=== PATIENT | male | born 1985 | race Caucasian/White ===

== ENCOUNTER 2020-10-05 23:41 | Emergency (ER) | payer MEDICAID, SELFPAY ==
[2020-10-05 23:41] VITALS: BP 142/73; PULSE 103; RESP 20; TEMP 36.8; O2SAT 100
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
[2020-10-06 00:26] LABS: Anion Gap 8 mmol/L (8-16); Blood Urea Nitrogen 18 mg/dL (7-18); Calcium 9.4 mg/dL (8.5-10.1); Carbon Dioxide 26 mmol/L (21-32); Chloride 104 mmol/L (98-108); Estimated CRCL calculation 106 ml/min; Estimated Glomerular Filt Rate > 60; Glucose 123 mg/dL (70-99); Osmolality Calculated 288 mOsm/kg (285-295); Potassium 3.8 mmol/L (3.5-5.1); Sodium 138 mmol/L (136-145)
--- NOTE | 2020-10-06 00:28 | PC.NURSE ---
0028-Patient sleeping, family at bedside.
[2020-10-06 00:32] LABS: Amphetamine Screen Urine Negative (Negative); Barbiturate Screen Urine Negative (Negative); Benzodiazepines Screen Urine Negative (Negative); Cannabinoid Screen Urine Positive (Negative); Cocaine Screen Urine Negative (Negative); Methadone Screen Urine Negative (Negative); Opiate Screen Urine Negative (Negative); Phencyclidine Screen Urine Negative (Negative)
[2020-10-06 00:35] LABS: Ethanol < 3 mg/dL (0-6)
[2020-10-06 00:43] VITALS: BP 110/65; PULSE 79; RESP 20; TEMP 37.1; O2SAT 99
--- NOTE | 2020-10-06 00:53 | PC.NURSE ---
PT AMBULATED TO FRONT DOOR WITH RN, NO DIFFICULTY WITH AMBULATION. GAIT SLOW AND STEADY. CONTINUED TO PERSONAL CAR DRIVEN BY MOTHER.
== END 2020-10-06 00:52 | disposition home or self-care (01) ==
PROVIDERS: Emergency Provider Emergency Medicine; PCP Nurse Practitioner
DX: F12.122 Cannabis abuse with intoxication with perceptual disturbance (principal)
CPT/HCPCS: 36415; 80048; 80307; 99282; 99283

== ENCOUNTER 2021-03-19 08:37 | Outpatient (CLI) | payer OTHER, SELFPAY ==
[2021-03-19 10:09] LABS: HIV 1 P24 AG Negative (Negative); HIV 1/2 AB Negative (Negative)
[2021-03-24 20:52] LABS: RPR Screen Non-Reactive (Non-Reactive)
[2021-03-25 22:01] LABS: Hepatitis A Antibody IgM Nonreactive; Hepatitis B Core Antibody Nonreactive (Nonreactive); Hepatitis B Surface Antigen Nonreactive (Nonreactive); Hepatitis C Signal to Cutoff 0.03 ratio (<1.00); Hepatitis C Virus Antibody Nonreactive (Nonreactive)
== END 2021-03-19 08:38 | disposition home or self-care (01) ==
LOC: CHSLAB 08:43
PROVIDERS: PCP Family Medicine; Visit Provider Family Medicine
DX: Z72.51 High risk heterosexual behavior (principal)
CPT/HCPCS: 36415; 80074; 86592; 86696; 86703

== ENCOUNTER 2021-06-11 15:59 | Emergency (ER) | payer OTHER, SELFPAY ==
[2021-06-11 16:00] VITALS: BP 120/78; PULSE 77; RESP 16; TEMP 36.3; O2SAT 96
--- NOTE | 2021-06-11 16:08 | ECG_ITS ---
Measurements Intervals [place] Rate: 69 P: 21 WV: 156 QRS: 29 QRSD: 85 T: 44 QT: 375 QTc: 402 Interpretive Statements SINUS RHYTHM NORMAL ECG Electronically Signed On 06-13-2021 6:04:29 CDT by Christian Gomes D.O.
--- NOTE | 2021-06-11 16:24 | PC.NURSE ---
donte Garcia rn contacted to request bedside safety belt installer for pt with suicidal and homicidal ideations
[2021-06-11 16:44] LABS: Basophils Absolute Auto 0.03 K/mm3 (0.00-0.10); Basophils Percent Auto 0.3 % (0.0-1.0); Eosinophils Absolute Auto 0.19 K/mm3 (0.02-0.50); Eosinophils Percent Auto 2.2 % (1.0-6.0); Hematocrit 47.5 % (40.0-54.0); Hemoglobin 15.4 g/dL (14.0-18.0); Immature Granulocyte Absolute 0.03 K/mm3 (0.00-0.00); Immature Granulocyte Percent A 0.3 % (0.0-0.0); Lymphocytes Absolute Auto 2.59 K/mm3 (1.10-4.50); Lymphocytes Percent Auto 29.8 % (18.0-42.0); Mean Corpuscular HGB Conc 32.4 g/dL (32.0-36.0); Mean Corpuscular Hemoglobin 29.6 pg (27.0-31.0); Mean Corpuscular Volume 91.2 fL (78.0-102.0); Monocytes Absolute Auto 0.54 K/mm3 (0.10-0.90); Monocytes Percent Auto 6.2 % (2.0-11.0); Neutrophils Absolute Auto 5.3 K/mm3 (1.7-7.2); Neutrophils Percent Auto 61.2 % (50.0-70.0); Platelet Count Result 303 K/mm3 (150-420); Red Blood Count 5.21 M/mm3 (4.70-6.10); Red Cell Distribution Width 14.2 % (11.6-14.4); White Blood Count 8.7 K/mm3 (4.8-10.8)
[2021-06-11 16:49] LABS: Add Urine Microscopic? NO; Appearance Urine Clear (Clear); Bilirubin Urine Negative (Negative); Blood Urine Negative (Negative); Color Urine Light Yellow (Yellow); Glucose Urine UA Negative (Negative); Ketones Urine Negative (Negative); Leukocyte Esterase Ur Negative (Negative); Nitrate Urine Negative (Negative); Protein Urine Negative (Negative); Specific Grav Ur >= 1.030 (1.010-1.020); Urobilinogen Urine 0.2 mg/dL (0.2-1.0)
[2021-06-11 17:00] LABS: Alanine Aminotransferase 26 U/L (16-63); Albumin Level 3.6 g/dL (3.4-5.0); Alkaline Phosphatase 115 U/L (46-116); Anion Gap 11 mmol/L (8-16); Aspartate Amino Transferase 15 U/L (15-37); Bilirubin,Total 0.4 mg/dL (0.00-1.00); Blood Urea Nitrogen 12 mg/dL (7-18); Calcium 8.8 mg/dL (8.5-10.1); Carbon Dioxide 24 mmol/L (21-32); Chloride 103 mmol/L (98-108); Estimated CRCL calculation 91 ml/min; Estimated Glomerular Filt Rate > 60; Glucose 121 mg/dL (70-99); Osmolality Calculated 286 mOsm/kg (285-295); Potassium 3.8 mmol/L (3.5-5.1); Sodium 138 mmol/L (136-145); Total Protein 8.3 g/dL (6.4-8.2)
[2021-06-11 17:01] LABS: Amphetamine Screen Urine Negative (Negative); Barbiturate Screen Urine Negative (Negative); Benzodiazepines Screen Urine Negative (Negative); Cannabinoid Screen Urine Negative (Negative); Cocaine Screen Urine Negative (Negative); Methadone Screen Urine Negative (Negative); Opiate Screen Urine Negative (Negative); Phencyclidine Screen Urine Negative (Negative)
[2021-06-11 17:03] LABS: SARS-CoV-2 Ag Negative (Negative)
[2021-06-11 17:04] LABS: Ethanol < 3 mg/dL (0-6)
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
--- NOTE | 2021-06-11 17:51 | PC.NURSE ---
second call out for [facility] rep at [phone]. awaiting call back
--- NOTE | 2021-06-11 20:04 | PC.NURSE ---
TD MORGAN STATES PATIENT CAN GO HOME WITH AN APPT TO FOLLOW UP WITH PSYCHIATRIST. TD TABARES REP. SIGNS SAFETY CONTRACT WITH PATIENT.
[2021-06-11 20:05] VITALS: RESP 14; O2SAT 100
== END 2021-06-11 20:20 | disposition home or self-care (01) ==
PROVIDERS: Emergency Provider Emergency Medicine; PCP Family Medicine
DX: R45.851 Suicidal ideations (principal); R45.850 Homicidal ideations; Z20.822 Contact with and (suspected) exposure to COVID-19
CPT/HCPCS: 36415; 80053; 80307; 81003; 84443; 85025; 87426; 93005; 99283; 99284; C9803

== ENCOUNTER 2021-06-21 11:54 | Emergency (ER) | payer OTHER, SELFPAY ==
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
[2021-06-21 12:19] VITALS: BP 116/75; PULSE 89; RESP 16; TEMP 36.6; O2SAT 96
[2021-06-21 13:10] VITALS: BP 123/79; PULSE 78; RESP 14; TEMP 37.1; O2SAT 97
== END 2021-06-21 13:16 | disposition home or self-care (01) ==
PROVIDERS: Emergency Provider Emergency Medicine; PCP Family Medicine
DX: S39.012A Strain of muscle, fascia and tendon of lower back, initial encounter (principal); S13.4XXA Sprain of ligaments of cervical spine, initial encounter; S93.492A Sprain of other ligament of left ankle, initial encounter; V89.2XXA Person injured in unspecified motor-vehicle accident, traffic, initial encounter
CPT/HCPCS: 72125; 72131; 73590; 73610; 73630; 99282; 99284; L4350

== ENCOUNTER 2021-06-21 15:52 | Emergency (ER) | payer OTHER, SELFPAY ==
[2021-06-21 16:00] VITALS: BP 132/82; PULSE 106; RESP 18; TEMP 37; O2SAT 97
--- NOTE | 2021-06-21 16:10 | PC.NURSE ---
pt belongings locked in med room, pt given paper scrubs. pt initially refused to change and requests to go smoke. explained to pt that this is our policy and he is also unable to go out and smoke due to this being a smoke free facility. pt decided to do as requested and changed in to paper scrubs. pt requesting food and drink. sandwich, chips and soda given to pt.
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
[2021-06-21 16:38] LABS: Basophils Absolute Auto 0.02 K/mm3 (0.00-0.10); Basophils Percent Auto 0.2 % (0.0-1.0); Eosinophils Absolute Auto 0.18 K/mm3 (0.02-0.50); Hematocrit 45.6 % (40.0-54.0); Hemoglobin 14.8 g/dL (14.0-18.0); Immature Granulocyte Absolute 0.03 K/mm3 (0.00-0.00); Immature Granulocyte Percent A 0.3 % (0.0-0.0); Lymphocytes Percent Auto 27.2 % (18.0-42.0); Mean Corpuscular HGB Conc 32.5 g/dL (32.0-36.0); Mean Corpuscular Hemoglobin 29.5 pg (27.0-31.0); Mean Corpuscular Volume 90.8 fL (78.0-102.0); Mean Platelet Volume 9.4 fl (8.7-11.0); Monocytes Absolute Auto 0.56 K/mm3 (0.10-0.90); Monocytes Percent Auto 6.1 % (2.0-11.0); Neutrophils Absolute Auto 5.9 K/mm3 (1.7-7.2); Neutrophils Percent Auto 64.2 % (50.0-70.0); Platelet Count Result 243 K/mm3 (150-420); Red Blood Count 5.02 M/mm3 (4.70-6.10); Red Cell Distribution Width 14.5 % (11.6-14.4); White Blood Count 9.2 K/mm3 (4.8-10.8)
[2021-06-21 16:40] LABS: Add Urine Microscopic? YES; Appearance Urine Clear (Clear); Bilirubin Urine Negative (Negative); Blood Urine Negative (Negative); Color Urine Yellow (Yellow); Glucose Urine UA Negative (Negative); Ketones Urine Negative (Negative); Leukocyte Esterase Ur Negative LEU/UL (Negative); Nitrate Urine Negative (Negative); Protein Urine Trace (Negative); Specific Grav Ur >= 1.030 (1.010-1.020)
--- NOTE | 2021-06-21 16:45 | PC.NURSE ---
mental health here to see pt.
[2021-06-21 16:50] LABS: Amphetamine Screen Urine Negative (Negative); Barbiturate Screen Urine Negative (Negative); Benzodiazepines Screen Urine Negative (Negative); Cannabinoid Screen Urine Negative (Negative); Cocaine Screen Urine Negative (Negative); Methadone Screen Urine Negative (Negative); Opiate Screen Urine Negative (Negative); Phencyclidine Screen Urine Negative (Negative)
[2021-06-21 16:55] LABS: RBC Urine None seen /hpf (0-2)
[2021-06-21 16:56] LABS: Bacteria Urine Trace /hpf; Calcium Oxalate Crystals Urine Present /hpf; Mucus Urine Moderate /lpf; Squamous Epithelial Cell Urine Rare /hpf (Few); WBC Urine None seen /hpf (0-3)
[2021-06-21 17:02] LABS: Alanine Aminotransferase 29 U/L (16-63); Albumin Level 3.8 g/dL (3.4-5.0); Alkaline Phosphatase 108 U/L (46-116); Anion Gap 10 mmol/L (8-16); Aspartate Amino Transferase 25 U/L (15-37); Bilirubin,Total 0.4 mg/dL (0.00-1.00); Blood Urea Nitrogen 14 mg/dL (7-18); Calcium 9.3 mg/dL (8.5-10.1); Carbon Dioxide 25 mmol/L (21-32); Chloride 106 mmol/L (98-108); Estimated Glomerular Filt Rate > 60; Glucose 122 mg/dL (70-99); Osmolality Calculated 293 mOsm/kg (285-295); Potassium 3.5 mmol/L (3.5-5.1); Salicylate 4.3 mg/dL (2.8-20.0); Sodium 141 mmol/L (136-145); Thyroid Stimulating Hormone 0.72 uIU/mL (0.36-3.74); Total Protein 7.9 g/dL (6.4-8.2)
[2021-06-21 17:04] LABS: Acetaminophen < 2 ug/mL (10-30); Ethanol < 3 mg/dL (0-6)
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
--- NOTE | 2021-06-21 17:40 | PC.NURSE ---
mental health continues to speak with pt.
--- NOTE | 2021-06-21 18:08 | PC.NURSE ---
pt deflected home per mental health to f/u outpatient.
[2021-06-21 18:20] VITALS: BP 127/84; PULSE 94; RESP 18; TEMP 36.6; O2SAT 96
== END 2021-06-21 18:40 | disposition home or self-care (01) ==
LOC: CHSED 15:54
PROVIDERS: Emergency Provider Emergency Medicine; PCP Family Medicine
DX: F33.9 Major depressive disorder, recurrent, unspecified (principal)
CPT/HCPCS: 36415; 80053; 80307; 81001; 84443; 85025; 99283

== ENCOUNTER 2025-02-20 14:23 | Outpatient (CLI) | payer MEDICAID, SELFPAY ==
--- NOTE | ~2025-02-20 | XR_ITS ---
3 VIEWS LUMBAR SPINE Ordering provider: Christopher Geller, ELECTRIC REFRIGERATOR PREPARER History: . lumbar back pain with radiculopathy affecting LE,NKI . Comparison: None. FINDINGS: VERTEBRAL BODIES: Compression fracture in the superior endplate of L2 is noted. DISK SPACES: Normal. SOFT TISSUES: Normal. IMPRESSION: Compression fracture of the superior endplate of L2 which may be acute or chronic. MRI evaluation adv ised. Reviewed, dictated and finalized at location A. IMPRESSION: Compression fracture of the superior endplate of L2 which may be acute or chron ic. MRI evaluation advised.
--- OUTSIDE RECORDS SUMMARY | 2025-02-20 14:30 | XMS_ITS | Continuity of Care Document ---
Author Organization [facility] Address [address] [place] [phone] Phone Care Team Providers Care Reheater Name Role Phone Abraham Singh Unavailable Unavailable Advance Directives Directive Yes / No Effective Date File Name No Information Encounters Encounter Description Practice Location Reason(s) For Visit Diagnoses Date Provider Providers Copied on Encounter [facility], [address] [place] [address], Psychiatric hospital, tel:[phone] *[facility] No Information Francisco Rosario. [address] [place] [address], Psychiatric hospital, . tel:[phone] Family History Family Member Type Diagnosis Age At Onset No Information Payers Payer name Insurance type Covered republican ID Authoriza tion(s) No Information Social History Type Description Quantity Date Captured Comments Sex Male Smoking Status No Information Chief Complaint And Reason For Visit No Information Reason For Referral Reason For Referral No Information History Of Present Illness Encounter Date Complaint History Of Prese nt Illness No Information Functional Status Date Functional Assessmen t No Information Instructions Date Instruction Additional Infor mation No Information Assessments Type Assessment Date No Information Patient Care Teams Name Effective Dates (start - stop) Status Members No Information
== END 2025-02-20 14:24 | disposition home or self-care (01) ==
LOC: CHSIMG 14:28
PROVIDERS: PCP Registered Nurse; Visit Provider Registered Nurse
DX: M54.16 Radiculopathy, lumbar region (principal); M48.56XA Collapsed vertebra, not elsewhere classified, lumbar region, initial encounter for fracture
CPT/HCPCS: 72100

== ENCOUNTER 2025-03-14 08:20 | Outpatient (CLI) | payer MEDICAID, SELFPAY ==
--- NOTE | ~2025-03-14 | MR_ITS ---
MRI of the lumbar spine Clinical History: Back pain Technique: Axial T2-weighted images, and sagittal T1-weighted, T2-weighted, and T2 fat-sat images wer e acquired. Findings: There is mild chronic compression deformity of L2. No acute fracture or dislocation. No bon e marrow signal abnormality seen. At L1-L2, there is no disc bulge or herniation. No spinal canal stenosis or neural foraminal narrowin g. At L2-L3, there is no disc bulge or herniation. No spinal canal stenosis or neural foraminal narrowin g. At L3-L4 and L4-L5, there is no disc bulge or herniation. No spinal canal stenosis or neural foramina l narrowing at these levels. L5-S1, there is disc desiccation with diffuse posterior disc bulge. There is minimal facet arthropath y. No central canal stenosis. There is mild to moderate bilateral neural foraminal narrowing. Paravertebral soft tissues are unremarkable. Impression: Mild chronic compression fracture of L2. [id number] degenerative spondylosis at L5-S1, as detailed above. Reviewed, dictated and finalized at location . Impression: Mild chronic compression fracture of L2. [id number] degenerative spondylosis at L5-S1, as detailed above.
--- OUTSIDE RECORDS SUMMARY | 2025-03-14 08:24 | XMS_ITS | Continuity of Care Document ---
Author Organization [facility] Address [address] [place] [phone] Phone Care Team Providers Care Equipment Analyst Name Role Phone Abraham Singh Unavailable Unavailable Advance Directives Directive Yes / No Effective Date File Name No Information Encounters Encounter Description Practice Location Reason(s) For Visit Diagnoses Date Provider Providers Copied on [place] [facility], [address] [place] [address], [facility], tel:[phone] *[facility] No Information Francisco Rosario. [address] [place] [address], [facility], . tel:[phone] Family History Family Member Type Diagnosis Age At Onset No Information Payers Payer name Insurance type Covered democrat ID Authoriza tion(s) No Information Social History [...]
== END 2025-03-14 08:21 | disposition home or self-care (01) ==
PROVIDERS: PCP Physician Assistant; Visit Provider Physician Assistant
DX: M54.50 Low back pain, unspecified (principal); S32.029A Unspecified fracture of second lumbar vertebra, initial encounter for closed fracture; M43.06 Spondylolysis, lumbar region
CPT/HCPCS: 72148

== ENCOUNTER 2025-07-23 15:48 | Emergency (ER) | payer OTHER, SELFPAY ==
--- NOTE | ~2025-07-23 | XR_ITS ---
EXAMINATION: XR chest 1V portable 07/23/2025 16:18 INDICATION: Cough congestion TECHNIQUE:2 frontal images of the chest were obtained. COMPARISON: None available FINDINGS: Heart is unenlarged. No pneumothorax. No pleural effusion. No free air under the diaphragm. No focal pulmonary consolidation. Small opacities in the mid and lower lungs. IMPRESSION: 1. Small opacities in the mid and lower lungs which represents atelectasis/scarring or infiltrates. If symptoms persist or worsen, consider a short-term follow-up study or additional imaging for further assessment. Reviewed, dictated and finalized at location [facility]. IMPRESSION: 1. Small opacities in the mid and lower lungs which represents atelectasis/scar ring or infiltrates. If symptoms persist or worsen, consider a short-term follow-up study or additio nal imaging for further assessment.
[2025-07-23 15:48] VITALS: BP 129/93; PULSE 79; RESP 16; TEMP 36.7; O2SAT 97
[2025-07-23 16:42] VITALS: PULSE 80; RESP 16; O2SAT 97
[2025-07-23] MEDS: IPRATROPIUM 0.5 MG/ALBUTEROL SULFATE 2.5 MG (BASE) AMPUL.NEB 3 ML INHALATION (16:42)
[2025-07-23 16:46] LABS: Hematocrit 47.0 % (40.0-54.0); Hemoglobin 15.2 g/dL (14.0-18.0); Immature Granulocyte Percent A 0.2 % (0.0-0.0); Lymphocytes Absolute Auto 2.40 K/mm3 (1.10-4.50); Mean Corpuscular HGB Conc 32.3 g/dL (32-36); Mean Corpuscular Hemoglobin 28.7 pg (27.0-31.0); Mean Corpuscular Volume 88.8 fL (78.0-102.0); Nucleated Red Blood Cells Absolute Auto 0.00 K/mm3 (0.00-0.00); Nucleated Red Blood Cells Perc 0.0 % (0-0.0); Platelet Count Result 227 K/mm3 (150-420); Red Blood Count 5.29 M/mm3 (4.70-6.10); White Blood Count 5.3 K/mm3 (4.8-10.8)
[2025-07-23 16:49] VITALS: PULSE 82; RESP 16
[2025-07-23] MEDS: SODIUM CHLORIDE 0.9% IV 1,000 ML 999 ML IV CONT (16:52)
[2025-07-23 17:00] LABS: Alanine Aminotransferase 48 U/L (6-50); Albumin Level 3.9 g/dL (3.5-5.1); Alkaline Phosphatase 71 U/L (38-126); Anion Gap 7 mmol/L (4-12); Aspartate Amino Transferase 55 U/L (17-59); Bilirubin,Total 0.6 mg/dL (0.2-1.3); Blood Urea Nitrogen 12 mg/dL (9-20); Calcium 9.1 mg/dL (8.4-10.2); Carbon Dioxide 26 mmol/L (22-30); Chloride 109 mmol/L (98-107); Estimated CRCL calculation 132 ml/min; Estimated Glomerular Filt Rate > 60; Glucose 102 mg/dL (65-110); Osmolality Calculated 293 mOsm/kg (285-295); Potassium 4.2 mmol/L (3.4-5.0); Sodium 142 mmol/L (137-145); Total Protein 7.7 g/dL (6.3-8.2)
--- NOTE | 2025-07-23 17:05 | ED.NAVMDI ---
HPI - Nausea/Vomiting/Diarrhea General Chief complaint: Nausea/Vomiting/Diarrhea Stated complaint: vomiting, headache, weakness Time Seen by Provider: 07/23/25 15:59 Source: patient and family Mode of arrival: ambulatory Limitations: no limitations History of Present Illness HPI Narrative: this is a 39-year-old male with no significant past medical history was recently started on antibiotics by his primary care physician, for upper respiratory tract infection. Patient continues to have a cough that is productive of green sputum with currently no fever chills no chest pain does have some nausea and few episodes of diarrhea otherwise no abdominal pain. MD elicited complaint: nausea and diarrhea Onset (ago): week(s) Related Data Home Medications ?Medication ?Instructions ?Recorded ?Confirmed ?Last Taken ?Type gabapentin 300 mg capsule 300 mg PO BID 06/11/21 06/21/21 Unknown History bupropion HCl 150 mg 24 hr tablet, mg PO 07/23/25 Unknown History extended release lamotrigine 100 mg tablet mg 07/23/25 Unknown History prazosin 1 mg capsule mg 07/23/25 Unknown History Allergies Allergy/AdvReac Type Severity Reaction Status Date / Time cephalexin (From Keflex) AdvReac Unknown Verified 07/23/25 16:01 Review of Systems Review of Systems: All systems reviewed & are unremarkable except as noted in HPI and below PMFSH Past Medical History Medical History No active medical problems Surgical History Surgical History Previous back surgery Fracture, wrist, open Social History Social History Smoking status: Current some day smoker Tobacco type: cigars Alcohol intake: never Substance use: current Substance use type: does not use Exam Const: General: no acute distress Nutritional Appearance: well nourished Orientation/consciousness: patient oriented x3 HENMT: Head: normal to inspection Ears: external ears normal Neck: Neck: normal visual inspection, no lymphadenopathy and no meningeal signs Chest: Chest palpation & inspection: normal inspection of the chest Resp: Effort & Inspection: normal respiratory effort Auscultation: wheezes Cardio: Rate: regular rate Rhythm: regular rhythm GI: GI Palp: Yes Soft to palpation Auscultation: normal bowel sounds Back/Spine/Pelvis: Back: no CVA tenderness Skin: General skin exam: normal color Rashes: no rashes Wounds: no wounds Extrem: General: normal to inspection, no clubbing, cyanosis or edema and no pedal edema Course Course Emergency Course: Medical decision making narrative: The patient was evaluated by myself in the emergency department. History was obtained from the patient who is independent historian and physical exam performed and witnessed by a nurse. The external records were reviewed at this time. Patient had chest x-ray that shows patch of infiltrate versus atelectasis. Patient with a cough and green sputum production started on Levaquin 500 p.o. x1 dose in the emergency department. White count within normal limits the rest of his blood work was unremarkable, patient received IV fluids with normal saline. Repeat assessment: Patient doing well on PD exam with no acute distress Symptoms improved since arrival to the emergency department. Repeat vitals are stable. Patient agrees with discussion after shared medical decision making patient agrees with discharge on p.o. antibiotics. All questions answered to the patient's satisfaction. Follow-up with primary care physician 3 to 5 days Patient provided a strict returned precautions and return to the ED if any worsening symptoms. Vital Signs Vital signs: Vital Signs Temperature 36.7 C 07/23/25 15:48 Pulse Rate 79 07/23/25 15:48 Respiratory Rate 16 07/23/25 15:48 Blood Pressure 129/93 H 07/23/25 15:48 Pulse Oximetry 97 07/23/25 15:48 Oxygen Delivery Room Air 07/23/25 15:48 Temperature 36.7 C 07/23/25 15:48 Pulse Rate 82 07/23/25 16:49 Respiratory Rate 16 07/23/25 16:49 Blood Pressure 129/93 H 07/23/25 15:48 Pulse Oximetry 97 07/23/25 16:42 Oxygen Delivery Room Air 07/23/25 15:48 MDM - Nausea/Vomiting/Diarrhea Lab Data 07/23/25 16:35 07/23/25 16:35 Labs: Lab Results 07/23/25 07/23/25 Range/Units 16:35 16:40 WBC 5.3 (4.8-10.8) K/mm3 RBC 5.29 (4.70-6.10) M/mm3 Hgb 15.2 (14.0-18.0) g/dL Hct 47.0 (40.0-54.0) % MCV 88.8 (78.0-102.0) fL MCH 28.7 (27.0-31.0) pg MCHC 32.3 (32-36) g/dL RDW 13.6 (11.6-14.4) % Plt Count 227 (150-420) K/mm3 MPV 9.1 (8.7-11.0) fl Immature Gran % (Auto) 0.2 H (0.0-0.0) % Neut % (Auto) 44.6 L (50.0-70.0) % Lymph % (Auto) 45.3 H (18.0-42.0) % [place] % (Auto) 7.4 (2.0-11.0) % Eos % (Auto) 1.9 (1.0-6.0) % Baso % (Auto) 0.6 (0.0-1.0) % Lymph # (Auto) 2.40 (1.10-4.50) K/mm3 [place] # (Auto) 0.39 (0.10-0.90) K/mm3 Eos # (Auto) 0.10 (0.02-0.50) K/mm3 Baso # (Auto) 0.03 (0.00-0.10) K/mm3 Abs Immat Gran (auto) 0.01 H (0.00-0.00) K/mm3 Absolute Neuts (auto) 2.37 (1.70-7.20) K/mm3 Absolute Nucleated RBC 0.00 (0.00-0.00) K/mm3 Nucleated RBC % 0.0 (0-0.0) % Sodium 142 (137-145) mmol/L Potassium 4.2 (3.4-5.0) mmol/L Chloride 109 H (98-107) mmol/L Carbon Dioxide 26 (22-30) mmol/L Anion Gap 7 (4-12) mmol/L BUN 12 (9-20) mg/dL Creatinine 0.98 (0.7-1.3) mg/dL Estim Creat Clear Calc 132 ml/min Estimated GFR > 60 (59 - ) Glucose 102 (65-110) mg/dL Calculated Osmolality 293 (285-295) mOsm/kg Calcium 9.1 (8.4-10.2) mg/dL Total Bilirubin 0.6 (0.2-1.3) mg/dL AST 55 (17-59) U/L ALT 48 (6-50) U/L Alkaline Phosphatase 71 (38-126) U/L Total Protein 7.7 (6.3-8.2) g/dL Albumin 3.9 (3.5-5.1) g/dL Influenza A (RT-PCR) Pending Influenza B (RT-PCR) Pending RSV (RT-PCR) Pending SARS-CoV-2 RNA (RT-PCR) Pending Critical Care Time Critical Care Time Critical Care Time: No Discharge Plan Discharge Clinical Impression: Pneumonia Qualifiers: Pneumonia type: due to unspecified organism Laterality: unspecified laterality Lung location: unspecified part of lung Qualified Code(s): J18.9 - Pneumonia, unspecified organism Patient Disposition: Home Condition: Stable Instructions: Antibiotic Form, Acute Nausea and Vomiting (ED), Community Acquired Pneumonia (ED) Patient Language: Kiswahili Prescriptions: No Action gabapentin 300 mg capsule 300 mg PO BID prazosin 1 mg capsule lamotrigine 100 mg tablet bupropion HCl 150 mg tablet extended release 24 hr PO Follow-up/Referrals: [place],MD Shant [Primary Care Provider, Family Practice]
[2025-07-23 17:22] LABS: Influenza A QL RT-PCR Negative (Negative); Influenza B QL RT-PCR Negative (Negative); RSV RNA, RT-PCR Negative (Negative); SARS-CoV-2 RNA PCR Negative (Negative)
[2025-07-23 17:43] VITALS: BP 130/83; PULSE 71; RESP 18; TEMP 36.6; O2SAT 98
== END 2025-07-23 17:44 | disposition home or self-care (01) ==
PROVIDERS: Emergency Provider Emergency Medicine; PCP Family Medicine
DX: J18.9 Pneumonia, unspecified organism (principal); Z79.899 Other long term (current) drug therapy
CPT/HCPCS: 36415; 71045; 80053; 85025; 87637; 94640; 96360; 99283; A9270; J7030